=== PATIENT | female | born 1985 | race African-American/Black ===

== ENCOUNTER 2019-08-31 19:54 | Emergency (ER) | payer OTHER ==
[~2019-08-31] VITALS: Ht 167.6 cm; Wt 64.0 kg
[2019-08-31 21:32] LABS: CLARITY URINE CLOUDY (CLEAR); COLOR URINE YELLOW (YELLOW); KETONES URINE NEGATIVE (NEGATIVE); LEUKOCYTE ESTERASE URINE 2+ (NEGATIVE); NITRITE URINE NEGATIVE (NEGATIVE); OCCULT BLOOD URINE 2+ (NEGATIVE); PROTEIN URINE NEGATIVE (NEGATIVE); SPECIFIC GRAVITY URINE 1.018 (1.005-1.030); UROBILINOGEN URINE 0.2 E.U./dL (0.2-1.0)
[2019-09-01] MEDS ORDERED: CYCLOBENZAPRINE 10MG TABLET PO ONE
[2019-09-01] MEDS ORDERED: KETOROLAC 30MG/ML VIAL IM ONE
[2019-09-01 02:19] VITALS: BP 121/74
== END 2019-09-01 11:35 | disposition home or self-care (01) ==
LOC: ER 19:54
DX: M50.322 Other cervical disc degeneration at C5-C6 level (principal); F12.10 Cannabis abuse, uncomplicated; F17.200 Nicotine dependence, unspecified, uncomplicated; Z98.890 Other specified postprocedural states
CPT/HCPCS: 72125; 81003; 81025; 87077; 87086; 87186; 96372; 99284; J1885